=== PATIENT | male | born 1970 | race Caucasian/White ===

== ENCOUNTER 2016-05-25 02:46 | Emergency (ER) | payer BC ==
[~2016-05-25] VITALS: Ht 180.3 cm; Wt 108.5 kg
[~2016-05-25 02:46] MED LIST: OMEP40CA41 PO; VERA360C2 PO
[2016-05-25 02:50] VITALS: TEMP 37.1; Ht 180.3 cm; Wt 108.5 kg
[2016-05-25] MEDS ORDERED: PRED50TA PO (04:23)
[2016-05-25] MEDS ORDERED: AZITTAB PO (04:23)
--- NOTE | 2016-05-25 04:23 | EMERGENCY ROOM VISIT NOTE ---
History Report prepared by Gisela: Kay Carlton Under the Supervision of: Dr. Kayden Crowe M.D. First contact with patient: 02:57 Chief Complaint: CONGESTION Stated Complaint: CONGESTION Nursing Triage Summary: pt c/o chest congestion for past week, non productive cough, last night felt a pop and having pain now in right ribs History of Present Illness The patient is a 46 year old male who presents to the Emergency Room with complaints of worsening congestion with onset one week ago. The patient notes that he has been coughing for about one week. Last night, he developed pain around his right ribs. He notes that breathing also hurts. The patient notes that he has bruised ribs in the past. He has had an episode of bronchitis in the past. He denies abdominal pain, blood in his urine, passing out, swelling in legs. Source of History: patient Onset: 1 week ago Position: chest Quality: other (congestion) Timing: worsening Associated Symptoms: No LOC, No abdominal pain Note: He denies blood in his urine, swelling in legs. Review of Systems See HPI for pertinent positives & negatives. A total of 10 systems reviewed and were otherwise negative. Past Medical & Surgical Medical Problems: (1) Abnormal CT of the chest (2) Tran's esophagus (3) GERD (gastroesophageal reflux disease) (4) Headache (5) Hypertension (6) Nephrolithiasis Family History Heart disease Social History Smoking Status: Never Smoker Marital Status: Housing Status: lives with family Current/Historical Medications Scheduled Azithromycin (Zithromax Z-Antonio), 1 PKT PO UD Omeprazole (Prilosec), 40 MG PO HS Prednisone (Prednisone), 50 MG PO DAILY Verapamil Hcl (Verapamil Hcl Sr), 360 MG PO HS Allergies Coded Allergies: Metoclopramide (Verified Allergy, Unknown, muscle stiffness, 05/25/16) Physical Exam Vital Signs Date Time Temp Pulse Resp B/P Pulse Ox O2 Delivery O2 Flow Rate FiO2 05/25/16 04:44 73 16 127/72 98 05/25/16 02:50 96 Room Air 05/25/16 02:50 37.1 98 18 176/105 95 Room Air Physical Exam GENERAL: Patient is uncomfortable appearing, in moderate distress. HEENT: No acute trauma, normocephalic atraumatic, mucous membranes moist, no nasal congestion, no scleral icterus. NECK: No stridor, no adenopathy, no meningismus, trachea is midline. CHEST: Tenderness to palpation of right lower posterior ribs. LUNGS: No dyspnea. Clear to auscultation and equal bilaterally. No wheeze, no rhonchi. HEART: Regular rate and rhythm. No murmurs, rubs, gallops appreciated. ABDOMEN: Soft, nontender, bowel sounds positive, no masses appreciated, no peritonitis. BACK: No midline tenderness, no CVA tenderness EXTREMITIES: Normal motion all extremities, no cyanosis, no edema. NEUROLOGIC: Alert and oriented, no acute motor or sensory deficits, no focal weakness, cranial nerves grossly intact. SKIN: No rash, no jaundice, no diaphoresis. Medical Decision & Procedures ER Provider Diagnostic Interpretation: X ray results and stated below per my interpretation. 4 view right rib with PA chest: No fracture, no dislocation, no pneumothorax, no infiltrate, no effusion, no free air under diaphragm. Medications Administered Medications (Trade) Dose Ordered Sig/Chang Route Start Time Stop Time Status Last Admin Dose Admin Azithromycin (Zithromax Tab) 500 mg NOW ONCE PO 05/25/16 04:30 05/25/16 04:31 DC 05/25/16 04:30 500 MG Prednisone (PredniSONE TAB) 60 mg NOW STAT PO 05/25/16 04:21 05/25/16 04:22 DC 05/25/16 04:21 60 MG Albuterol (Ventolin Hfa Inhaler) 2 puffs NOW ONCE INH 05/25/16 04:30 05/25/16 04:31 DC 05/25/16 04:30 2 PUFFS Hydrocodone Bit/ Homatropine Methylb (Hycodan Elix Homepack 5/1.5MG/ 5ML) 1 homepack UD ONCE PO 05/25/16 04:30 05/25/16 04:31 DC 05/25/16 04:30 1 HOMEPACK ED Course 0257: The patient was evaluated in room B5. A complete history and physical exam was performed. 0421: Prednisone 60 mg PO 0430: Hycodan Elix 1.5 mg 1 homepack PO, Albuterol 2 puffs INH, Zithromax Tab 500 mg PO 0415: Reevaluated the patient. He is comfortable with outpatient treatment for bronchitis. He declines any pain medications. Discussed results and discharge instructions: He verbalized understanding and agreement. The patient is ready for discharge. Medical Decision 46 yr old male with right lower chest discomfort clearly TTP which started after heavy coughing. Easily reproducible rib TTP. He does not have pneumothorax on CXR and I do not see obvious rib fracture at this time. He does have clearly progressed bronchitis though no clear pneumonia currently. Given length of symptoms seems reasonable treating with abx/steroids, sending home with inhaler. He was given Hycodan to help with cough as clearly this is uncomfortable to him, though he declines any stronger pain medications. He does not have dissection, pe, acs, by history/exam. I suspect micro fracture of rib as likely cause of discomfort. He has no evidence of intraabdominal injury at this time. Impression Primary Impression: Bronchitis Additional Impression: Rib pain on right side Scribe Attestation The scribe's documentation has been prepared under my direction and personally reviewed by me in its entirety. I confirm that the note above accurately reflects all work, treatment, procedures, and medical decision making performed by me. Departure Information Dispostion Home / Self-Care Prescriptions Prednisone (Prednisone) 50 Mg Tab 50 MG PO DAILY for 5 Days, #5 TAB Prov: Kayden Crowe M.D. 05/25/16 Azithromycin (ZITHROMAX Z-ANTONIO) 250 Mg Tab 1 PKT PO UD for 5 Days, #1 PKT Prov: Kayden Crowe M.D. 05/25/16 Referrals Usman Bello D.O.Int.Med. (PCP) Patient Instructions Bronchitis Acute, ED Contusion Vs Minor Fx Rib, My [facility] Health Problem Qualifiers
[2016-05-25] MEDS ORDERED: HYCODAN 60ML BOTTLE HOMEPACK PO ONE (04:30)
[2016-05-25] MEDS ORDERED: AZITHROMYCIN 250 MG TAB PO ONE (04:30)
[2016-05-25] MEDS ORDERED: ALBUTEROL HFA 8 GM INHALER INH ONE (04:30)
[2016-05-25 04:44] VITALS: BP 127/72; PULSE 73; O2SAT 98
--- NOTE | 2016-05-25 08:10 | DIAGNOSTIC IMAGING REPORT ---
RIGHT RIBS UNILATERAL WITH PA CHEST CLINICAL HISTORY: right rib pain s/p coughing Right COMPARISON STUDY: Chest 11/26/2013. FINDINGS: No rib fractures. No pneumothorax. The lungs are clear. The heart is normal in size. No pleural effusions. Mild bilateral hilar prominence. However, this is slightly improved. This favors slight decrease in size in a patient is identified hilar lymphadenopathy. IMPRESSION: 1. No acute rib fractures. No pneumothorax. 2. Bilateral hilar prominence is slightly improved. This is consistent with improvement in the patient's previously identified bilateral hilar lymphadenopathy. Electronically signed by: Sebas Mandujano M.D. 05/25/2016 8:09 AM Dictated Date/Time: 05/25/2016 8:06 AM
== END 2016-05-25 04:46 | disposition home or self-care (01) ==
LOC: C.EDB 02:46
DX: J40 Bronchitis, not specified as acute or chronic (principal); R07.81 Pleurodynia; K21.9 Gastro-esophageal reflux disease without esophagitis; I10 Essential (primary) hypertension; Z87.442 Personal history of urinary calculi; Z79.899 Other long term (current) drug therapy

== ENCOUNTER 2016-10-09 06:00 | Emergency (ER) | payer OTHER, BC ==
[~2016-10-09] VITALS: Ht 175.3 cm; Wt 111.7 kg
[2016-10-09 06:05] VITALS: TEMP 36.7; Ht 175.3 cm; Wt 111.7 kg
--- NOTE | 2016-10-09 06:31 | DIAGNOSTIC IMAGING REPORT ---
RIGHT WRIST W/NAVICULAR MIN 3 VIEWS CLINICAL HISTORY: Right wrist pain. COMPARISON: None. DISCUSSION: No acute fractures are visualized. There are suspected small cysts within the navicular and lunate. There are mild degenerative changes at the level the first carpometacarpal joint. IMPRESSION: No acute fractures or dislocations identified. Electronically signed by: Peter Reynoso M.D. 10/09/2016 6:29 AM Dictated Date/Time: 10/09/2016 6:28 AM
[2016-10-09] MEDS ORDERED: IBUPROFEN 600 MG TAB PO STA (06:42)
[2016-10-09] MEDS ORDERED: PERCOCET HOME PACK PO ONE (06:45)
[2016-10-09] MEDS ORDERED: OXYC-57 PO (06:45)
--- NOTE | 2016-10-09 07:06 | EMERGENCY ROOM VISIT NOTE ---
History Report prepared by Gisela: Shavon Fry Under the Supervision of: Dr. Barron Hartman M.D. First contact with patient: 06:34 Chief Complaint: WRIST PAIN Stated Complaint: HURT RIGHT WRIST AT WORK History of Present Illness The patient is a 46 year old male who presents to the Emergency Room with complaints of worsening right wrist pain that started 2 days ago. The patient states that he was working with concrete at work 2 days ago and after that his right wrist started to hurt. He states that his wrist was sore yesterday and then today he was unable to move it or use it at all. The patient has been taking ibuprofen to relieve his symptoms and the last time he took the ibuprofen was last night. Source of History: patient Onset: 2 days ago Position: wrist (right) Quality: other (right wrist pain) Timing: worsening Modifying Factors (Relieving): ibuprofen Note: unable to move right wrist Review of Systems See HPI for pertinent positives & negatives. A total of 6 systems reviewed and were otherwise negative. Past Medical & Surgical Medical Problems: (1) Abnormal CT of the chest (2) Tran's esophagus (3) GERD (gastroesophageal reflux disease) (4) Headache (5) Hypertension (6) Nephrolithiasis Family History Heart disease Social History Smoking Status: Never Smoker Marital Status: Housing Status: lives with family Current/Historical Medications Scheduled Omeprazole (Prilosec), 40 MG PO HS Scheduled PRN Oxycodone/Acetaminophen 5MG/325MG (Percocet 5MG/325MG), 1-2 TAB PO Q4H PRN for Pain Allergies Coded Allergies: Metoclopramide (Verified Allergy, Unknown, muscle stiffness, 05/25/16) Physical Exam Vital Signs Date Time Temp Pulse Resp B/P (MAP) Pulse Ox O2 Delivery O2 Flow Rate FiO2 10/09/16 07:16 73 18 168/117 96 10/09/16 06:05 36.7 80 16 173/117 96 Room Air Physical Exam GENERAL: Patient is a healthy-appearing well-nourished male. HEAD: Normocephalic atraumatic EYES: Ocular movements intact pupils equal and react to light OROPHARYNX mucous membranes are moist no exudates present no erythema or edema present NECK: Supple no nuchal rigidity CHEST: Good equal expansion BACK: No CVA tenderness EXTREMITIES: Tender to palpation of the distal radius, good range of motion of thumb and fingers, neurovascularly intact, no evidence of swelling. NEURO: Patient is following commands and answering questions appropriately. Alert and oriented x3 Cranial Nerves 2-12 grossly intact Medical Decision & Procedures ER Provider Diagnostic Interpretation: Radiology results as stated below per my review and radiologist interpretation: RIGHT WRIST W/NAVICULAR MIN 3 VIEWS DISCUSSION: No acute fractures are visualized. There are suspected small cysts within the navicular and lunate. There are mild degenerative changes at the level the first carpometacarpal joint. IMPRESSION: No acute fractures or dislocations identified. Electronically signed by: Peter Reynoso M.D. 10/09/2016 6:29 AM Dictated Date/Time: 10/09/2016 6:28 AM Medications Administered Medications (Trade) Dose Ordered Sig/Chang Route Start Time Stop Time Status Last Admin Dose Admin Oxycodone/ Acetaminophen (Percocet 5/ 325MG Home Pack) 1 homepack UD ONCE PO 10/09/16 06:45 10/09/16 06:46 DC 10/09/16 07:02 1 HOMEPACK Ibuprofen (Motrin Tab) 600 mg NOW STAT PO 10/09/16 06:42 10/09/16 06:44 DC 10/09/16 07:02 600 MG ED Course 0634: Past medical records reviewed. The patient was evaluated in room A2. A complete history and physical examination was performed. 0641: After examination, I discussed results and treatment plan with the patient. He verbalizes agreement and understanding. The patient is ready for discharge. 0642: Ordered Ibuprofen 600 mg PO 0645: Ordered Oxycodone/Acetaminophen 1 homepack PO Medical Decision Differential diagnosis: Etiologies such as fracture, dislocation, neurovascular compromise, compartment syndrome, soft tissue injury, as well as others were entertained. Medication Reconciliation: I attest that I have personally reviewed the patient' s current medication list Blood Pressure Screening: Patient was found to have an elevated blood pressure and was referred to their primary care doctor for recheck and further treatment This is a 46-year-old male who presents emergency department complaining of right wrist pain. The patient has good range of motion of the wrist and his fingers are neurovascularly intact. There is no evidence of compartment syndrome. There is no evidence of fracture subluxation or dislocation on x- ray. The patient was given Percocet and IV Profen for the pain in the emergency department. He was placed in a splint and will follow-up with orthopedics. Patient was in agreement with the treatment plan. Impression Primary Impression: Wrist pain, right Scribe Attestation The scribe's documentation has been prepared under my direction and personally reviewed by me in its entirety. I confirm that the note above accurately reflects all work, treatment, procedures, and medical decision making performed by me. Departure Information Dispostion Home / Self-Care Prescriptions Oxycodone/Acetaminophen 5MG/325MG (PERCOCET 5MG/325MG) Tab 1-2 TAB PO Q4H Y for Pain, #14 TAB Prov: Barron Hartman MD 10/09/16 Referrals Usman Bello D.O.Int.Med. (PCP) Forms HOME CARE DOCUMENTATION FORM, IMPORTANT VISIT INFORMATION, WORK / SCHOOL INSTRUCTIONS Patient Instructions ED RICE, ED Sprain Wrist, My [facility] Additional Instructions Follow up with DR Quevedo's office You were found to have an elevated blood pressure today (>120 sytolic or >90 diastolic). Per medicare guidelines, you need to follow up with this blood pressure screening with your Primary Care Physician (PCP). For a new PCP call [phone]. You received narcotic or benzodiazepene medication while in the emergency room today. Do not drive, operate heavy machinery, or drink alcohol under the influence of this medication. Take 600 mg Ibuprofen every 6 hours Take Percocet for breakthrough pain You have been examined and treated today on an emergency basis only. This is not a substitute for, or an effort to provide, complete comprehensive medical care. It is impossible to recognize and treat all injuries or illnesses in a single emergency department visit. It is therefore important that you follow up closely with Dr Bello. Call as soon as possible for an appointment. Thank you for your time and consideration. I look forward to speaking with you again soon. Please don't hesitate to call us if you have any questions.
[2016-10-09 07:16] VITALS: BP 168/117; PULSE 73; O2SAT 96
== END 2016-10-09 07:17 | disposition home or self-care (01) ==
LOC: C.EDB 06:01 → C.EDA 07:17
DX: M25.531 Pain in right wrist (principal); I10 Essential (primary) hypertension; K21.9 Gastro-esophageal reflux disease without esophagitis; K22.70 Barrett's esophagus without dysplasia; Z87.442 Personal history of urinary calculi; Z79.899 Other long term (current) drug therapy; Z88.8 Allergy status to other drugs, medicaments and biological substances; Z82.49 Family history of ischemic heart disease and other diseases of the circulatory system

== ENCOUNTER → 2016-10-10 | Outpatient (CLI) | payer BC ==
[~2016-10-10] MED LIST changes: +OXYC-57 PO; -VERA360C2 PO
[2016-10-10 17:10] LABS: BLOOD UREA NITROGEN 14 mg/dl (7-18); BUN/CREATININE RATIO 12.1 (10-20); CALCIUM 9.5 mg/dl (8.5-10.1); CARBON DIOXIDE 24 mmol/L (21-32); CHLORIDE 107 mmol/L (98-107); GLUCOSE 167 mg/dl (70-99); POTASSIUM 3.9 mmol/L (3.5-5.1); SODIUM 140 mmol/L (136-145)
== END | disposition home or self-care (01) ==
LOC: C.LABBC 15:24
PROVIDERS: ATTEND Family Medicine
DX: I10 Essential (primary) hypertension (principal)

== ENCOUNTER → 2016-10-16 | Outpatient (CLI) | payer BC ==
[2016-10-16 11:42] LABS: BLOOD UREA NITROGEN 13 mg/dl (7-18); BUN/CREATININE RATIO 10.6 (10-20); GLUCOSE 94 mg/dl (70-99); SODIUM 142 mmol/L (136-145)
[2016-10-16 11:43] LABS: CALCIUM 9.4 mg/dl (8.5-10.1); CARBON DIOXIDE 29 mmol/L (21-32); CHLORIDE 109 mmol/L (98-107); POTASSIUM 4.3 mmol/L (3.5-5.1)
== END | disposition home or self-care (01) ==
LOC: C.LABBC 07:31
PROVIDERS: ATTEND Family Medicine
DX: I10 Essential (primary) hypertension (principal)

== ENCOUNTER → 2017-03-16 | Outpatient (CLI) | payer BC ==
[2017-03-16 13:50] LABS: ESTIMATED AVERAGE GLUCOSE 114 mg/dl; HA1C FLAG Normal (Normal)
[2017-03-16 14:29] LABS: ALB/GLOB RATIO 1.1 (0.9-2); ALKALINE PHOSPHATASE 77 U/L (45-117); ALT/SGPT 54 U/L (12-78); AST/SGOT 17 U/L (15-37); BLOOD UREA NITROGEN 10 mg/dl (7-18); BUN/CREATININE RATIO 9.5 (10-20); CALCIUM 9.5 mg/dl (8.5-10.1); CARBON DIOXIDE 25 mmol/L (21-32); CHLORIDE 104 mmol/L (98-107); CHOLESTEROL 189 mg/dl (0-200); GLUCOSE 95 mg/dl (70-99); POTASSIUM 3.9 mmol/L (3.5-5.1); SODIUM 138 mmol/L (136-145); TRIGLYCERIDES 173 mg/dl (0-150); VERY LOW DENSITY LIPOPROT CALC 35 mg/dl
[2017-03-16 14:30] LABS: CHOLESTEROL/HDL RATIO 5.1; HDL CHOLESTEROL 37 mg/dl; LDL CHOLESTEROL CALCULATED 117 mg/dl
[2017-03-16 16:42] LABS: LYME DISEASE AB IGG NEG (NEG); LYME DISEASE AB IGM NEG (NEG)
== END | disposition home or self-care (01) ==
LOC: C.LABBC 11:35
PROVIDERS: ATTEND Physician Assistant Medical
DX: I10 Essential (primary) hypertension (principal); M10.9 Gout, unspecified; E78.5 Hyperlipidemia, unspecified; E88.81 Metabolic syndrome and other insulin resistance; E55.9 Vitamin D deficiency, unspecified; W57.XXXA Bitten or stung by nonvenomous insect and other nonvenomous arthropods, initial encounter

== ENCOUNTER → 2017-03-18 | Outpatient (CLI) | payer BC ==
[2017-03-22 18:34] LABS: ANAPLASMA PHAGOCYTOPHIL IGG <1:64 (<1:64); ANAPLASMA PHAGOCYTOPHIL IGM <1:20 (<1:20)
== END | disposition home or self-care (01) ==
LOC: C.LAB1850 10:57
PROVIDERS: ATTEND Physician Assistant Medical
DX: R53.83 Other fatigue (principal); W57.XXXA Bitten or stung by nonvenomous insect and other nonvenomous arthropods, initial encounter

== ENCOUNTER → 2017-04-15 | Outpatient (CLI) | payer BC ==
[~2017-04-15] MED LIST changes: -OXYC-57 PO
== END | disposition home or self-care (01) ==
LOC: C.LABSPEC 07:14
PROVIDERS: ATTEND Physician Assistant Medical
DX: R19.7 Diarrhea, unspecified (principal)

== ENCOUNTER → 2017-06-10 | Outpatient (CLI) | payer BC ==
--- NOTE | 2017-06-10 14:16 | DIAGNOSTIC IMAGING REPORT ---
CHEST 2 VIEWS ROUTINE HISTORY: Wheezing. COMPARISON: Chest 11/26/2013. FINDINGS: The lungs are clear. The heart is normal in size. Stable mild bilateral hilar prominence. No pleural effusions. No pneumothorax. IMPRESSION: No significant change compared to the prior study. No acute process. Electronically signed by: Sebas Mandujano M.D. 06/10/2017 2:14 PM Dictated Date/Time: 06/10/2017 2:06 PM
== END ==
LOC: C.LAB1850 13:45
PROVIDERS: ATTEND Internal Medicine
DX: R06.2 Wheezing (principal)

== ENCOUNTER → 2017-08-21 | Outpatient (CLI) | payer BC ==
[2017-08-21 14:11] LABS: FOLLICLE STIMULAT HORMONE 5.72 IU/L; LUTEINIZING HORMONE 2.78 IU/L
== END | disposition home or self-care (01) ==
LOC: C.LABBC 08:58
PROVIDERS: ATTEND Internal Medicine
DX: R68.82 Decreased libido (principal)

== ENCOUNTER → 2017-08-25 | Outpatient (CLI) | payer BC | END | disposition home or self-care (01) | LOC: C.NEUR 07:58 | PROVIDERS: ATTEND Internal Medicine Pulmonary Disease | DX: G47.33 Obstructive sleep apnea (adult) (pediatric) (principal) ==

== ENCOUNTER 2019-10-08 21:03 | Observation (INO) ==
[2019-10-08] MEDS ORDERED: ASPIRIN CHEW 324 MG PO STA (21:15)
[2019-10-08] MEDS ORDERED: NITROGLYCERIN SL 0.4 MG/TAB TAB SL STA (21:29)
[2019-10-08 21:46] LABS: Basophils # (auto) 0.04 K/uL (0-0.2); Basophils % (auto) 0.5 %; Eosinophils # (auto) 0.19 K/uL (0-0.5); Eosinophils % (auto) 2.5 %; Hematocrit (blood only) 48.1 % (42-52); Hemoglobin 16.6 g/dL (14.0-18.0); Immature Granulocytes # (auto) 0.08 K/uL (0.00-0.02); Immature Granulocytes % (auto) 1.1 %; Lymphocytes # (auto) 1.67 K/uL (1.2-3.4); Lymphocytes % (auto) 22.4 %; Mean Corpuscular Hemoglobin 31.3 pg (25-34); Mean Corpuscular Hgb Conc 34.5 g/dL (32-36); Mean Corpuscular Volume 90.8 fL (80-100); Mean Platelet Volume 10.1 fL (7.4-10.4); Monocytes # (auto) 0.67 K/uL (0.11-0.59); Neutrophils # (auto) 4.81 K/uL (1.4-6.5); Neutrophils % (auto) 64.5 %; Platelet Count 202 K/uL (130-400); RDW Coefficient of Variation 13.7 % (11.5-14.5); RDW Standard Deviation 44.8 fL (36.4-46.3); White Blood Count 7.46 K/uL (4.8-10.8)
[2019-10-08 22:01] LABS: BUN Creatinine Ratio 10.1 (10-20); Blood Urea Nitrogen 13 mg/dl (7-18); Calcium 9.6 mg/dl (8.5-10.1); Carbon Dioxide 28 mmol/L (21-32); Chloride 106 mmol/L (98-107); Creatinine Clr Calc Pharmacy 86.4 ml/min; Est GFR (Non-African American) 65.6; Glucose 91 mg/dl (70-99); Lipase 238 U/L (73-393); Potassium 3.7 mmol/L (3.5-5.1); Sodium 141 mmol/L (136-145)
[2019-10-08 22:06] LABS: Troponin I < 0.015 ng/ml (0-0.045)
[2019-10-08 22:07] LABS: D Dimer 250 ug/L FEU (0-500); Partial Thromboplastin Time 26.6 Seconds (21.0-31.0); Prothrombin Time 10.2 Seconds (9.0-12.0)
[2019-10-08] MEDS ORDERED: ACETAMINOPHEN 325 MG TAB ONE (22:18)
--- NOTE | 2019-10-08 23:39 | History & Physical Report ---
Date of Service October 08, 2019 Assessment & Plan (1) Chest pain: Chest pain/hypertension- The patient will be admitted to telemetry for serial cardiac enzymes, serial EKG's, cardiac rhythm monitoring and a 2-D echocardiogram with Dopplers. Continue losartan 100 mg p.o. daily. Hold amlodipine 5 mg p.o. daily. Begin metoprolol tartrate 25 mg p.o. twice daily, with first dose this evening. Aspirin 81 mg p.o. daily. Nitropaste 1 inch to anterior chest wall every 6 hours. Nitroglycerin sublingual's every 5 minutes as needed chest pain x3. Present on Admission?: Yes (2) Hypertension: See above Present on Admission?: Yes (3) GERD (gastroesophageal reflux disease): GERD/Tran's esophagus- For this admission will place on stress test prophylaxis with famotidine 20 mg p.o. twice daily Present on Admission?: Yes (4) Tran's esophagus: See above Present on Admission?: Yes (5) ELPIDIO (obstructive sleep apnea): Monitor oxygen saturation, and if needed, will be placed on CPAP. Present on Admission?: Yes History of Present Illness Chief Complaint: The patient presents to the emergency department, at the insistence of his , due to recurrent and progressive left-sided chest pain and elevated blood pressure while at home. Primary Care Provider: John Aguirre MD The patient is a 49-year-old male with a past medical history including sleep apnea, ureteral stone with hydronephrosis, acute kidney injury, hypertension, nephrolithiasis, GERD and Tran's esophagus. He began to develop left-sided chest pain about 1 week ago, that would spontaneously resolve with rest. As the week progressed, he developed the symptoms more frequently, but was also noted to have elevated blood pressure during these intervals. The day of admission, the patient's symptoms became more intense, and his blood pressure was recorded as 240/110, and his called 911, and he agreed to come to the ED for assessment. 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 He has no associated lightheadedness or dizziness or presyncopal symptoms. He has had no recent travels or sick exposures. Allergies Allergy/AdvReac Type Severity Reaction Status Date / Time metoclopramide Allergy Unknown muscle Verified 10/08/19 22:10 stiffness Home Medications Home Medications Medication Instructions Recorded Confirmed Type amlodipine 5 mg tablet 5 mg PO QPM #30 tab 10/03/19 10/08/19 Rx losartan 100 mg tablet 100 mg PO QPM #30 tab 10/03/19 10/08/19 Rx Past Med/Surg History Medical History Tran's esophagus (Chronic) Cardiac murmur A CHILD GERD (gastroesophageal reflux disease) (Chronic) Hypertension (Chronic) Kidney stones (Acute) Nephrolithiasis (Chronic) ELPIDIO (obstructive sleep apnea) Sleep apnea CPAP Surgical History History of cardiac cath 2014 - [facility] - CP - NO STENTS/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 History of colostomy History of esophagogastroduodenoscopy (EGD) History of lithotripsy History of tooth extraction Family History Father Family history of diabetes mellitus Grandmother (Maternal) Myocardial infarction Stroke Grandfather (Paternal) Myocardial infarction Other Hypertension Kidney stones Seizure Denies family history of Ovarian cancer Prostate cancer Breast cancer Lung cancer Colorectal cancer Social History Preferred Language: Georgian Communication Ability: Effective Visual Impairment: No Limitations Visual Design Lead Required: No Beliefs That Will Affect Care: None Current Living Situation: Spouse and Family Current Living Situation Comment: AND CHILDREN current occupational status: employed Feels Safe at Home: Yes Smoking Status: Never smoker Second Hand Exposure: No ; Hx Alcohol Use: No Hx Substance Use: No Dental Care, Regularly: Yes Physical Activity Frequency: Daily Physical Activity Frequency Comment: active job Seatbelt Use: never Sunscreen Use: No Review of Systems Review of Systems: The patient denies palpitations, shortness of breath, dyspnea on exertion, cough, lower extremity swelling, sore throat, fevers, chills, sweats, fatigue, nausea, vomiting, diarrhea , constipation, abdominal pain, pelvic pain, blood in urine or stool, dysuria, urinary frequency or urgency, lightheadedness, dizziness, headache, memory loss, loss of consciousness, rash, abnormal bruising or bleeding, imbalance, focal or generalized weakness, numbness or tingling in arms or legs, generalized arthralgias or myalgias, back or neck pain, or night sweats. The review of systems is otherwise negative other than for that already noted above, and at least 10 systems have been reviewed. Physical Exam Physical Exam: The patient is awake, alert and oriented 3, well developed and well nourished, normocephalic and atraumatic, lying in bed and in no acute distress. HEENT--PERRL, EOMI, mucous membranes and oropharynx normal. Neck--supple. No JVD. No bruits. Thyroid normal, trachea midline, no adenopathy. Heart--normal S1 and S2. No murmurs, rubs or gallops. Lungs--clear bilaterally, no respiratory distress, no accessory muscle use. Abdomen--normal bowel sounds and soft. Nontender. Nondistended. Obese. Extremities--no cyanosis or clubbing. No edema. Dermatologic--normal skin turgor, normal color, no abnormal lymph nodes, no rash. Neurologic--cranial nerves II through XII grossly intact. Rheumatologic--normal range of motion. Psychiatric--normal affect. Results & Data Results & Data ([facility]) Vital Signs (Past 12 Hours) Vital Signs Temp Pulse Pulse Resp BP BP BP 10/08/19 22:25 79 18 141/89 H 148/96 H 10/08/19 22:00 150/97 H 10/08/19 21:45 93 H 23 141/96 H 10/08/19 21:43 10/08/19 21:26 174/119 H 180/116 H 10/08/19 21:06 98.2 F 99 H 18 187/98 H Pulse Ox 10/08/19 22:25 96 10/08/19 22:00 97 10/08/19 21:45 95 10/08/19 21:43 97 10/08/19 21:26 10/08/19 21:06 99 Laboratory Results Laboratory Results WBC 7.46 K/uL (4.8-10.8) 10/08/19 21:35 RBC 5.30 M/uL (4.7-6.1) 10/08/19 21:35 Hgb 16.6 g/dL (14.0-18.0) 10/08/19 21:35 Hct 48.1 % (42-52) 10/08/19 21:35 MCV 90.8 fL (80-100) 10/08/19 21: MCH 31.3 pg (25-34) 10/08/19 21: MCHC 34.5 g/dL (32-36) 10/08/19 21:35 RDW Std Deviation 44.8 fL (36.4-46.3) 10/08/19 21: RDW Coeff of Debi 13.7 % (11.5-14.5) 10/08/19 21: Plt Count 202 K/uL (130-400) 10/08/19 21:35 MPV 10.1 fL (7.4-10.4) 10/08/19 21:35 Immature Gran % (Auto) 1.1 % 10/08/19 21: Neut % (Auto) 64.5 % 10/08/19 21: Lymph % (Auto) 22.4 % 10/08/19 21: Story % (Auto) 9.0 % 10/08/19 21: Eos % (Auto) 2.5 % 10/08/19 21: Baso % (Auto) 0.5 % 10/08/19 21: Immature Gran # (Auto) 0.08 K/uL (0.00-0.02) H 10/08/19 21:35 Neut # (Auto) 4.81 K/uL (1.4-6.5) 10/08/19 21: Lymph # (Auto) 1.67 K/uL (1.2-3.4) 10/08/19 21:35 Story # (Auto) 0.67 K/uL (0.11-0.59) H 10/08/19 21:35 Eos # (Auto) 0.19 K/uL (0-0.5) 10/08/19 21: Baso # (Auto) 0.04 K/uL (0-0.2) 10/08/19 21: PT 10.2 Seconds (9.0-12.0) 10/08/19 21: INR 1.0 (0.9-1.1) 10/08/19: APTT 26.6 Seconds (21.0-31.0) 10/08/19: PTT Ratio 1.0 10/08/19 21:35 D-Dimer 250 ug/L FEU (0-500) 10/08/19 21:35 Sodium 141 mmol/L (136-145) 10/08/19 21:35 Potassium 3.7 mmol/L (3.5-5.1) 10/08/19 21:35 Chloride 106 mmol/L (98-107) 10/08/19 21:35 Carbon Dioxide 28 mmol/L (21-32) 10/08/19 21:35 Anion Gap 7.0 (3-11) 10/08/19 21:35 BUN 13 mg/dl (7-18) 10/08/19 21:35 Creatinine 1.26 mg/dl (0.6-1.4) 10/08/19 21:35 Est Cr Clr Drug Dosing 86.4 ml/min 10/08/19 21:35 Est GFR ( Amer) 76.0 10/08/19 21:35 Est GFR (Non-Af Amer) 65.6 10/08/19 21:35 BUN/Creatinine Ratio 10.1 (10-20) 10/08/19 21:35 Glucose 91 mg/dl (70-99) 10/08/19 21:35 Calcium 9.6 mg/dl (8.5-10.1) 10/08/19 21:35 Troponin I < 0.015 ng/ml (0-0.045) 10/08/19 21:35 Lipase 238 U/L (73-393) 10/08/19 21:35 Code Status & VTE Plan Code Status Full code VTE Prophylaxis Plan VTE Prophylaxis will be ordered: Yes PG Care Time/CCT Total # of Minutes Spent Total Time Spent with Patient: Total time spent is greater than 50% in coordination of care (as documented) at patient's floor/unit and/or counseling patient: Coding Level of Care Code 89438 OBS Care - Level 3 Diagnoses Chest pain R07.9 Chest pain type: unspecified Hypertension I10 GERD (gastroesophageal reflux disease) K21.9 Tran's esophagus K22.70 ELPIDIO (obstructive sleep apnea) G47.33 (1) Chest pain Chest pain type: unspecified Qualified Code(s): R07.9 - Chest pain, unspecified
--- NOTE | 2019-10-09 00:12 | Emergency Department Note ---
History of Present Illness General Chief Complaint: Hypertension Stated Complaint: HTN Time Seen by Provider: 10/08/19 21:15 History of Present Illness Provider Complaint: chest pain Onset (ago): week(s) Onset (Weeks): 1 Duration: intermittent Pain Location: substernal Pain Radiation: none Severity: moderate Maximum Pain Intensity: 5 Current Pain Intensity: 5 Quality: + other (Pressure) Exacerbated By: + other (Stress) Context: no recent surgery, no recent immobilization, no recent travel, no trauma/injury and no history of DVT/PE Associated symptoms: + other (Blood pressure has been elevated and difficult to control.); no diaphoresis, no dyspnea, no syncope and no palpitations notes that the patient has been under extreme stress at home. She also states that she took the patient's blood pressure today and saw different readings in the bilateral upper extremities with the left upper extremity having higher blood pressure than the right so she became concerned and brought him to the emergency department. Patient is not on any medications for erectile dysfunction per the and him. Home Medications Home Medications Medication Instructions Recorded Confirmed Type amlodipine 5 mg tablet 5 mg PO QPM #30 tab 10/03/19 10/08/19 Rx losartan 100 mg tablet 100 mg PO QPM #30 tab 10/03/19 10/08/19 Rx Allergies Allergy/AdvReac Type Severity Reaction Status Date / Time metoclopramide Allergy Unknown muscle Verified 10/08/19 22:10 stiffness Past Med/Surg History Medical History Tran's esophagus (Chronic) Cardiac murmur A CHILD GERD (gastroesophageal reflux disease) (Chronic) Hypertension (Chronic) Kidney stones (Acute) Nephrolithiasis (Chronic) ELPIDIO (obstructive sleep apnea) Sleep apnea CPAP Surgical History History of cardiac cath 2014 - [facility] - CP - NO STENTS/ANGIOPLASTY - 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 History of colostomy History of esophagogastroduodenoscopy (EGD) History of lithotripsy History of tooth extraction Family History Father Family history of diabetes mellitus Grandmother (Maternal) Myocardial infarction Stroke Grandfather (Paternal) Myocardial infarction Other Hypertension Kidney stones Seizure Denies family history of Ovarian cancer Prostate cancer Breast cancer Lung cancer Colorectal cancer Social History Preferred Language: Lithuanian Communication Ability: Effective Visual Impairment: No 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 Beliefs That Will Affect Care: None Current Living Situation: Spouse and Family Current Living Situation Comment: [facility] current occupational status: employed Feels Safe at Home: Yes Smoking Status: Never smoker Second Hand Exposure: No ; Hx Alcohol Use: No Hx Substance Use: No Dental Care, Regularly: Yes Physical Activity Frequency: Daily Physical Activity Frequency Comment: active job Seatbelt Use: never Sunscreen Use: No Review of Systems A total of 10 systems reviewed and were otherwise negative Physical Exam Vital Signs Vital Signs - 24 hr 10/08/19 21:06 10/08/19 21:26 10/08/19 21:43 Temperature 36.8 C Temperature Source Oral Pulse Rate 99 H Pulse Rate [Apical] Pulse Rate from SpO2 Sensor Respiratory Rate 18 Respiratory Effort / Characteristics Non-Labored Spontaneous Respiratory Depth Normal Blood Pressure 187/98 H Blood Pressure [Left Arm] 174/119 H Blood Pressure [Right Arm] 180/116 H Blood Pressure Mean 127 Blood Pressure Mean [Left Arm] 137 Blood Pressure Mean [Right Arm] 137 Blood Pressure Position Sitting Blood Pressure Position [Left Arm] Lying Blood Pressure Position [Right Arm] Lying Pulse Oximetry 99 97 Oxygen Delivery Method Room Air Room Air Sepsis Recent Fever Within 48 Hours No Sepsis Action Taken by Nursing No Action Required 10/08/19 21:45 10/08/19 22:00 10/08/19 22:25 Temperature Temperature Source Pulse Rate 93 H Pulse Rate [Apical] 79 Pulse Rate from SpO2 Sensor 93 H 82 Respiratory Rate 23 18 Respiratory Effort / Characteristics Respiratory Depth Blood Pressure 141/96 H 150/97 H Blood Pressure [Left Arm] 141/89 H Blood Pressure [Right Arm] 148/96 H Blood Pressure Mean 111 114 Blood Pressure Mean [Left Arm] 106 Blood Pressure Mean [Right Arm] 113 Blood Pressure Position Blood Pressure Position [Left Arm] Blood Pressure Position [Right Arm] Pulse Oximetry 95 97 96 Oxygen Delivery Method Room Air Sepsis Recent Fever Within 48 Hours Sepsis Action Taken by Nursing 10/09/19 00:07 Temperature Temperature Source Pulse Rate 65 Pulse Rate [Apical] Pulse Rate from SpO2 Sensor Respiratory Rate 18 Respiratory Effort / Characteristics Respiratory Depth Blood Pressure 125/80 Blood Pressure [Left Arm] Blood Pressure [Right Arm] Blood Pressure Mean Blood Pressure Mean [Left Arm] Blood Pressure Mean [Right Arm] Blood Pressure Position Blood Pressure Position [Left Arm] Blood Pressure Position [Right Arm] Pulse Oximetry 96 Oxygen Delivery Method Sepsis Recent Fever Within 48 Hours Sepsis Action Taken by Nursing Physical Exam GENERAL: He is oriented to person, place, and time. He appears well-developed and well-nourished. He does not appear distressed. HENT: Exam performed. - Head: Normocephalic and atraumatic. - Right Ear: External ear normal. No mastoid tenderness. - Left Ear: External ear normal. No mastoid tenderness. - Mouth/Throat: The oropharynx is clear and moist. No trismus in the jaw. No dental abscesses or uvula swelling. No oropharyngeal exudate or tonsillar abscesses. EYES: Conjunctivae and EOM are normal. Pupils are equal, round, and reactive to light. Right eye exhibits no discharge. Left eye exhibits no discharge. No scleral icterus. NECK: Normal range of motion. Neck supple. No JVD present. No spinous process tenderness present. No carotid bruit present. No rigidity. No tracheal deviation and normal range of motion present. No Brudzinski's sign and no Kernig's sign noted. CV: Normal rate, regular rhythm, normal heart sounds and intact distal pulses. There is no peripheral edema. Palpable radial pulses bue. PULM/CHEST: Effort normal and breath sounds normal. No respiratory distress. No stridor. He has no wheezes. He has no rales. - Chest Wall: He exhibits no tenderness. ABD: The abdomen is soft. Bowel sounds are normal. He has no distension. No mass is present. There is no tenderness. There is no rebound, no guarding, no Samayoa's sign and no tenderness at McBurney's point. Rovsig negative. MUSC/SKEL: Normal range of motion. There is no peripheral edema, tenderness or deformity. Palpable radial pulse in the bilateral upper extremities. LYMPH: No cervical adenopathy. NEURO: He is alert and oriented to person, place, and time. He has normal strength. No cranial nerve deficit or sensory deficit. Coordination and gait normal. GCS eye subscore is 4. GCS verbal subscore is 5. GCS motor subscore is 6. Cerebellar tests wnl. SKIN: Skin is warm and dry. He is not diaphoretic. PSYCH: He has a normal mood and affect. Behavior is normal. Judgment and thought content normal. Course Course 2129: The patient was evaluated in room B9. A complete history and physical exam was performed. Cardiac monitoring: An order was placed for continuous cardiac monitoring. The monitor shows a rate of 90 with sinus rhythm 2200: Blood pressure stable and consistent bilateral upper extremities. Patient reports some relief after 1 sublingual nitro. 0: Patient developed chest pressure again while in the emergency department and a second sublingual nitro was given to the patient which again relieved his pain. Patient's labs and imaging within normal limits. Patient will be admitted to the hospital for chest pain rule out ACS. Discussed with [facility] hospitalist Dr. Sanabria who accepted the patient. Administered Medications Discontinued Medications Acetaminophen (Tylenol) Confirm Administered Dose 650 mg .ROUTE .STK-MED ONE Stop: 10/08/19 22:19 Last Admin: 10/08/19 22:23 Dose: 650 mg Documented by: [id number] Aspirin (Aspirin) 324 mg PO NOW STA Stop: 10/08/19 21:16 Last Admin: 10/08/19 21:23 Dose: 324 mg Documented by: [id number] Nitroglycerin (Nitrostat) 0.4 mg SL NOW STA Stop: 10/08/19 21:30 Last Admin: 10/08/19 21:42 Dose: 0.4 mg Documented by: [id number] Medical Decision Making Laboratory Data Result diagrams: 10/08/19 21:35 10/08/19 21:35 Labs: Lab Results 10/08/19 10/08/19 10/08/19 Range/Units 21:35 21:35 21:35 WBC 7.46 (4.8-10.8) K/uL RBC 5.30 (4.7-6.1) M/uL Hgb 16.6 (14.0-18.0) g/dL Hct 48.1 (42-52) % MCV 90.8 (80-100) fL MCH 31.3 (25-34) pg MCHC 34.5 (32-36) g/dL RDW Std Deviation 44.8 (36.4-46.3) fL RDW Coeff of Debi 13.7 (11.5-14.5) % Plt Count 202 (130-400) K/uL MPV 10.1 (7.4-10.4) fL Immature Gran % (Auto) 1.1 % Neut % (Auto) 64.5 % Lymph % (Auto) 22.4 % [place] % (Auto) 9.0 % Eos % (Auto) 2.5 % Baso % (Auto) 0.5 % Immature Gran # (Auto) 0.08 H (0.00-0.02) K/uL Neut # (Auto) 4.81 (1.4-6.5) K/uL Lymph # (Auto) 1.67 (1.2-3.4) K/uL [place] # (Auto) 0.67 H (0.11-0.59) K/uL Eos # (Auto) 0.19 (0-0.5) K/uL Baso # (Auto) 0.04 (0-0.2) K/uL PT 10.2 (9.0-12.0) Seconds INR 1.0 (0.9-1.1) APTT 26.6 (21.0-31.0) Seconds PTT Ratio 1.0 D-Dimer 250 (0-500) ug/L FEU Sodium 141 (136-145) mmol/L Potassium 3.7 (3.5-5.1) mmol/L Chloride 106 (98-107) mmol/L Carbon Dioxide 28 (21-32) mmol/L Anion Gap 7.0 (3-11) BUN 13 (7-18) mg/dl Creatinine 1.26 (0.6-1.4) mg/dl Est Cr Clr Drug Dosing 86.4 ml/min Est GFR ( Amer) 76.0 Est GFR (Non-Af Amer) 65.6 BUN/Creatinine Ratio 10.1 (10-20) Glucose 91 (70-99) mg/dl Calcium 9.6 (8.5-10.1) mg/dl Troponin I < 0.015 (0-0.045) ng/ml Lipase 238 (73-393) U/L Imaging Data Chest x-ray: My impression: Chest x-ray negative. Airway clear. No pneumothorax. No consolidation. No cardiomegaly or cephalization.. No free air under the diaphragm. No fractures of the skeletal structures. ECG Data Indication: chest pain Rate (beats per minute): 91 Rhythm: normal sinus Findings: no ST depression and no ST elevation Additional Comments: ER QRS and QTc intervals within normal limits [facility] Narrative 2130: The patient was evaluated in room B9. A complete history and physical exam was performed. Cardiac monitoring: An order was placed for continuous cardiac monitoring. The monitor shows a rate of 90 with sinus rhythm 2200: Blood pressure stable and consistent bilateral upper extremities. Patient reports some relief after 1 sublingual nitro. 0: Patient developed chest pressure again while in the emergency department and a second sublingual nitro was given to the patient which again relieved his pain. Patient's labs and imaging within normal limits. Patient will be admitted to the hospital for chest pain rule out ACS. Discussed with [facility] hospitalist Dr. Sanabria who accepted the patient. Impression & Plan Chest pain Discharge Plan Visit Data Chief Complaint: Hypertension Stated Complaint: HTN ED Provider: Chidi Subramanian Discharge Problem: Chest pain Patient Disposition: Being Evaluated by Hospitalist Forms Stand Alone Forms: My [facility] Prescriptions Prescriptions: No Action amlodipine 5 mg tablet 5 mg PO QPM Qty: 30 RF: 2 losartan 100 mg tablet 100 mg PO QPM Qty: 30 RF: 2 Referrals Referrals: John Aguirre MD [Primary Care Provider] - Discharge Problem: Chest pain Qualifiers: Chest pain type: unspecified Qualified Code(s): R07.9 - Chest pain, unspecified
[2019-10-09] MEDS ORDERED: ACETAMINOPHEN 325 MG TAB PO PRN (00:22)
[2019-10-09] MEDS ORDERED: ALUMINUM/MAGNESIUM SUSP 30 ML UDC PO PRN (00:22)
[2019-10-09] MEDS ORDERED: NITROGLYCERIN SL 0.4 MG/TAB TAB SL PRN (00:22)
[2019-10-09] MEDS ORDERED: MAGNESIUM HYDROXIDE SUSP 30 ML UDC PO PRN (00:22)
[2019-10-09] MEDS ORDERED: ONDANSETRON INJ 2 MG/ML 2 ML VIAL IV PRN (00:22)
[2019-10-09] MEDS: NITROGLYCERIN 2% OINTMENT 30GM TUBE EXT SCH ×5 (01:07→17:32)
[2019-10-09] MEDS: METOPROLOL TARTRATE 25 MG TAB PO SCH ×2 (01:07→08:31)
--- NOTE | 2019-10-09 08:19 | XRay Report ---
XR chest 2V PA/lateral HISTORY: 49 years-old Male Chest Pain acute atypical chest pain COMPARISON: Chest radiograph 6 01/27/2018 TECHNIQUE: PA and lateral views of the chest FINDINGS: Cardiomediastinal and hilar silhouettes are within normal limits. No pneumothorax, pleural effusion, airspace consolidation or overt pulmonary edema. Bones of the chest appear grossly intact. Degenerati ve changes of the shoulders and spine. IMPRESSION: No acute process. ACT 112: Negative or not required by law. The above report was generated using voice recognition software. It may contain grammatical, syntax o r spelling errors. Electronically signed by: Kelvin Nance M.D. 10/09/2019 8:18 AM
[2019-10-09 08:45] LABS: Basophils # (auto) 0.03 K/uL (0-0.2); Basophils % (auto) 0.4 %; Eosinophils # (auto) 0.23 K/uL (0-0.5); Eosinophils % (auto) 3.3 %; Hematocrit (blood only) 42.6 % (42-52); Hemoglobin 14.3 g/dL (14.0-18.0); Immature Granulocytes # (auto) 0.11 K/uL (0.00-0.02); Immature Granulocytes % (auto) 1.6 %; Lymphocytes # (auto) 2.18 K/uL (1.2-3.4); Lymphocytes % (auto) 31.7 %; Mean Corpuscular Hemoglobin 30.4 pg (25-34); Mean Corpuscular Hgb Conc 33.6 g/dL (32-36); Mean Corpuscular Volume 90.6 fL (80-100); Mean Platelet Volume 10.4 fL (7.4-10.4); Monocytes # (auto) 0.59 K/uL (0.11-0.59); Monocytes % (auto) 8.6 %; Neutrophils # (auto) 3.73 K/uL (1.4-6.5); Neutrophils % (auto) 54.4 %; Platelet Count 191 K/uL (130-400); RDW Coefficient of Variation 13.9 % (11.5-14.5); RDW Standard Deviation 45.9 fL (36.4-46.3); White Blood Count 6.87 K/uL (4.8-10.8)
[2019-10-09] MEDS ORDERED: ASPIRIN 81 MG ECTAB PO SCH (09:00)
[2019-10-09] MEDS ORDERED: FAMOTIDINE 20 MG TAB PO SCH (09:00)
[2019-10-09 09:06] LABS: INR 0.9 (0.9-1.1); Partial Thromboplastin Time 27.1 Seconds (21.0-31.0); Prothrombin Time 9.8 Seconds (9.0-12.0)
[2019-10-09 09:09] LABS: Albumin Level 3.3 gm/dl (3.4-5.0); BUN Creatinine Ratio 12.4 (10-20); Blood Urea Nitrogen 13 mg/dl (7-18); Calcium 8.9 mg/dl (8.5-10.1); Carbon Dioxide 26 mmol/L (21-32); Chloride 109 mmol/L (98-107); Creatinine Clr Calc Pharmacy 104.8 ml/min; Est GFR (African American) 95.9; Est GFR (Non-African American) 82.7; Glucose 108 mg/dl (70-99); Potassium 4.1 mmol/L (3.5-5.1); Sodium 141 mmol/L (136-145)
[2019-10-09 09:14] LABS: Phosphorus 3.1 mg/dl (2.5-4.9); Troponin I < 0.015 ng/ml (0-0.045)
--- NOTE | 2019-10-09 10:34 | Electrocardiogram Report ---
Test Reason : Blood Pressure : / mmHG Vent. Rate : 091 BPM Atrial Rate : 091 BPM P-R Int : 146 ms QRS Dur : 096 ms QT Int : 370 ms P-R-T Axes : 058 -16 039 degrees QTc Int : 455 ms Normal sinus rhythm Possible Left atrial enlargement Borderline ECG When compared with ECG of 27-JAN-2018 11:54, No significant change was found Confirmed by Yan Samuel ([id number]) on 10/09/2019 10:33:46 AM Referred By: REFERRED SELF Confirmed By:Yan Samuel
--- NOTE | 2019-10-09 10:46 | Electrocardiogram Report ---
Test Reason : Blood Pressure : / mmHG Vent. Rate : 059 BPM Atrial Rate : 059 BPM P-R Int : 160 ms QRS Dur : 108 ms QT Int : 432 ms P-R-T Axes : 063 000 021 degrees QTc Int : 427 ms Sinus bradycardia Otherwise normal ECG When compared with ECG of 08-OCT-2019 21:27, (unconfirmed) Vent. rate has decreased BY 32 BPM Confirmed by Yan Samuel ([id number]) on 10/09/2019 10:46:23 AM Referred By: REFERRED SELF Confirmed By:Yan Samuel
--- NOTE | 2019-10-09 10:52 | Hospitalist Progress Note ---
Date of Service October 09, 2019 Assessment & Plan Admission and Anticipated Discharge Date Admission Date: October 08, 2019 49 yo M w/ pMHx. of sleep apnea, HTN, Tran's, GERD, ureteral stone, hydronephrosis, and recently increased anxiety presents with 1 week of chest pain resolved with rest. Chest pain/hypertension- The patient will be admitted to telemetry for serial cardiac enzymes, serial EKG's, cardiac rhythm monitoring and a 2-D echocardiogram with Dopplers. Continue losartan 100 mg p.o. daily. Hold amlodipine 5 mg p.o. daily. Begin metoprolol tartrate 25 mg p.o. twice daily, with first dose this evening. Aspirin 81 mg p.o. daily. Nitropaste 1 inch to anterior chest wall every 6 hours. Nitroglycerin sublingual's every 5 minutes as needed chest pain x3. Present on Admission?: Yes (2) Hypertension: See above Present on Admission?: Yes (3) GERD (gastroesophageal reflux disease): GERD/Tran's esophagus- For this admission will place on stress test prophylaxis with famotidine 20 mg p.o. twice daily Present on Admission?: Yes (4) Tran's esophagus: See above Present on Admission?: Yes (5) ELPIDIO (obstructive sleep apnea): Monitor oxygen saturation, and if needed, will be placed on CPAP. Present on Admission?: Yes Results & Data Results & Data ([facility]) Vital Signs (Past 12 Hours) Vital Signs Temp Pulse Pulse Resp BP BP BP 10/09/19 08:00 101 H 10/09/19 07:46 36.6 C 64 18 120/78 10/09/19 06:03 147/99 H 10/09/19 04:02 36.6 C 89 18 111/66 10/09/19 00:55 68 10/09/19 00:15 36.6 C 69 18 174/98 H 175/95 H 10/09/19 00:07 65 18 125/80 Pulse Ox Pulse Ox 10/09/19 08:00 96 10/09/19 07:46 96 10/09/19 06:03 10/09/19 04:02 96 10/09/19 00:55 10/09/19 00:15 98 10/09/19 00:07 96
--- NOTE | 2019-10-09 18:03 | Discharge Summary ---
Date of Service October 09, 2019 Admission HPI Per Admitting Provider The patient is a 49-year-old male with a past medical history including sleep apnea, ureteral stone with hydronephrosis, acute kidney injury, hypertension, nephrolithiasis, GERD and Tran's esophagus. He began to develop left-sided chest pain about 1 week ago, that would spontaneously resolve with rest. As the week progressed, he developed the symptoms more frequently, but was also noted to have elevated blood pressure during these intervals. The day of admission, the patient's symptoms became more intense, and his blood pressure was recorded as 240/110, and his called 911, and he agreed to come to the ED for assessment. 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 He has no associated lightheadedness or dizziness or presyncopal symptoms. He has had no recent travels or sick exposures. Admission Exam Per Admitting Provider The patient is awake, alert and oriented 3, well developed and well nourished, normocephalic and atraumatic, lying in bed and in no acute distress. HEENT--PERRL, EOMI, mucous membranes and oropharynx normal. Neck--supple. No JVD. No bruits. Thyroid normal, trachea midline, no adenopathy. Heart--normal S1 and S2. No murmurs, rubs or gallops. Lungs--clear bilaterally, no respiratory distress, no accessory muscle use. Abdomen--normal bowel sounds and soft. Nontender. Nondistended. Obese. Extremities--no cyanosis or clubbing. No edema. Dermatologic--normal skin turgor, normal color, no abnormal lymph nodes, no rash. Neurologic--cranial nerves II through XII grossly intact. Rheumatologic--normal range of motion. Psychiatric--normal affect. Principal Diagnosis HTN urgency Discharge Exam Constitutional well developed and well nourished; no acute distress Eyes PERRL, conjunctivae normal, anicteric sclerae ENMT external ear and nose normal, oropharynx normal Neck normal visual inspection Respiratory normal respiratory effort, lungs clear to auscultation Cardiovascular RRR, no murmur, no edema Gastrointestinal (Abdomen) normal bowel sounds, soft, nontender, no hepatosplenomegaly Skin no rashes, warm and dry Psychiatric A+Ox3, euthymic affect Discharge Data Allergies Allergy/AdvReac Type Severity Reaction Status Date / Time metoclopramide Allergy Unknown muscle Verified 10/08/19 22:10 stiffness Consultations 10/08/19 22:23 ED Decision to Admit Stat 10/09/19 00:22 Consult Case Management - Discharge Planning Routine Hospital Course (1) Hypertension: Chest pain/hypertension: This could represent angina 2/2 to blood pressure elevation vs. worsened anxiety or a combination HTN into 210 / 110 at home prior to arrival The patient was admitted to telemetry for serial cardiac enzymes (troponin normal X3), serial EKG's (sinus w/o ST changes), cardiac rhythm monitoring and a 2-D echocardiogram (normal echo) with Dopplers. Continued losartan 100 mg p.o. daily. Continue amlodipine 5 mg p.o. daily. started metoprolol tartrate 25 mg p.o. twice daily Aspirin 81 mg p.o. daily. continue to adjust medications to achieve better bp control in the outpatient setting Anxiety: Patient admitted to worsening anxiety overlapping with the elevated blood pressure discussed therapy, patient deferred at this time GERD (gastroesophageal reflux disease): Tran's esophagus: ELPIDIO (obstructive sleep apnea): Total Time Total Time Spent Total Time Spent (In Minutes): >30 Discharge Plan Discharge Items Patient Disposition: Home - Self-Care Reason For Visit: UNSTABLE ANGINA Discharge Diagnosis: Hypertensive urgency resolved Activity: Per Instructions section Non-emergency contact: Primary Care Provider Call non-emergency contact if: your symptoms worsen Follow-up/Referrals: John Aguirre MD [Primary Care Provider] - Diet: Regular Addtl Attending Provider Instructions: You came to the hospital for elevated blood pressure and chest pain. You were started on a new medication call Metoprolol. This medication will lower your blood pressure. You will also need to follow up with your primary doctor to ensure that you have good control of your blood pressure going forward. What is a high blood pressure emergency? A high blood pressure emergency is a serious and even life-threatening condition that can happen when a person's blood pressure gets much higher than normal. When a person's blood pressure gets very high, it can lead to problems in one or more of the following organs: Eyes Problems can include bleeding in the back of the eye, or swelling of the nerve that runs from the eye to the brain. Brain Problems can include swelling or bleeding in the brain, or a stroke. A stroke is when a part of the brain is damaged because of a problem with blood flow. Kidneys Very high blood pressure can lead to kidney failure, which is when the kidneys stop working. Heart Heart problems can include a heart attack, heart failure, or damage to a major blood vessel. When your doctor or nurse tells you your blood pressure, he or she says 2 numbers. For example, your doctor might say that your blood pressure is "140 over 90." When people have a high blood pressure emergency, their blood pressure is usually "180 over 120" or higher. What are the symptoms of a high blood pressure emergency? The symptoms depend on the organ or organs affected. They can include: Blurry vision or other vision changes Headache Nausea or vomiting Confusion Passing out or seizures Seizures are waves of abnormal electrical activity in the brain that can make people move or behave strangely. Weakness or numbness on one side of the body, or in one arm or leg Difficulty talking Trouble breathing Chest pain Pain in the upper back or between the shoulders Urine that is brown or bloody Pain in the lower back or on the side of the body Should I see a doctor or nurse? Yes. Call your doctor or nurse right away if you have any of the symptoms listed above, especially if you know that you have high blood pressure. Pending Studies at Discharge: Yes Studies:: ECHO Stand-Alone Forms: My [facility], Work/School Release (Inpt), Smoking Cessation Medications and DC Order Prescriptions: New metoprolol tartrate 25 mg tablet 25 mg PO BID Qty: 30 RF: 0 Continued amlodipine 5 mg tablet 5 mg PO QPM Qty: 30 RF: 2 losartan 100 mg tablet 100 mg PO QPM Qty: 30 RF: 2 Discharge Orders: Discharge Order (Routine); Ordered 10/09/19 Ordered By: Jarvis Park/Other Patient Handouts: Hypertension Control, High Blood Pressure Risk Factors, Anxiety Disorder Tx W Therapy, Anxiety Disorder, What Is High Blood Pressure, Hypertension Dc Admission Data Admit Date/Time: 10/08/19 23:38 Attending Provider: Felix Osborn Admit Provider: Lambert Bradshaw Primary Care Provider: John Aguirre Other Providers: Lambert Bradshaw Other Interventions: Discharge Summary Assessment (RN) Last Done: 10/09/19 17:42 Supervising Physician Co-Signing Physician Notes I personally examined the patient and verified all rice points of history and exam, discussed case, and agree with decision making with Dr Echols. feeling better. 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 vitals noted nad heent nc at mmm breathing unlabored no accessory muscles good effort EKG noted, troponins negative. technical issues have precluded formal echo report getting into [facility] yet but dr echols contacted cardiology and echo is reportedly normal. chest pain, markedly uncontrolled HTN -discussed with pt - spectrum of causes would include "purely cardiovascular" (ie HTN urgency, angina, etc) vs "purely stress" (panic attack and stress causing BP to rise) vs mix of both ----> since sx lasted for HOURS a day, unremitting, for days in a row, and had no exertional worsening/ekg changes/troponin elevation/echo findings -- exceedingly unlikely that CP was actually cardiac, making stress far more probable cause ----> since baseline BP has been elevated quite significantly in the past, it's fairly unlikely that marked BP spike is just due to stress - probably stress exacerbating previously uncontrolled HTN ---in that respect - stable for home, escalated BP management with addition of metoprolol. 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 also encouraged him to take time to do things that aren't work - that it's OK to simply spend time w family, etc. discussed that stress does appear to be causing him significant harm now, and that medical management of anxiety (particularly when caused by stress/situations) is usually only of a small benefit at best --> that self-work and changing the situation are generally what helps the most. he expressed understanding. stable for home. Resident Activity Tracking Resident Involvement: Resident Care Provided Care Provided: Adult [facility] Medicine
--- NOTE | 2019-10-09 18:15 | Billing Data ---
Date of Service October 09, 2019 Coding Level of Care Code 03650 OBS Care - Discharge
[2019-10-09] MEDS ORDERED: LOSARTAN POTASSIUM 50 MG TAB PO SCH (21:00)
== END 2019-10-09 18:31 | disposition home or self-care (01) ==
LOC: ED 21:03 → 2S 21:03 → SUATTDRO 23:38 → 2S 10-09 00:07